=== PATIENT | male | born 2005 | race Caucasian/White ===

== ENCOUNTER 2024-03-07 16:32 | Emergency (ER) | payer OTHER, SELFPAY ==
[2024-03-07] MEDS ORDERED: Bacitracin 1 PK ONE (17:27)
[2024-03-07] MEDS ORDERED: Lidocaine 1% w/Epinephrine 1:100K 20 ML VIAL ONE (17:28)
[2024-03-07] MEDS ORDERED: Boostrix 0.5 ML (Tdap) VIAL (>/=7 yrs of age) ONE (17:28)
== END 2024-03-07 19:17 | disposition home or self-care (01) ==
LOC: MADERS 16:32
DX: S61.211A Laceration without foreign body of left index finger without damage to nail, initial encounter (principal); W26.9XXA Contact with unspecified sharp object(s), initial encounter; Z23 Encounter for immunization
CPT/HCPCS: 12002; 90471; 90715